=== PATIENT | female | born 1990 | race Caucasian/White ===

== ENCOUNTER 2017-03-26 14:44 | Emergency (ER) | payer SELFPAY ==
[~2017-03-26] VITALS: Ht 175.3 cm; Wt 91.0 kg
[2017-03-26 14:50] VITALS: BP 104/66
== END 2017-03-26 16:55 | disposition left against medical advice (07) ==
LOC: ER 14:44
DX: Z53.21 Procedure and treatment not carried out due to patient leaving prior to being seen by health care provider (principal)

== ENCOUNTER 2017-04-15 20:21 | Emergency (ER) | payer SELFPAY ==
[~2017-04-15] VITALS: Ht 175.3 cm; Wt 94.0 kg
[2017-04-16] MEDS ORDERED: KETOROLAC 60MG/2ML VIAL IM ONE (00:15)
[2017-04-16] MEDS ORDERED: DEXAMETHASONE 10 MG/ML VIAL IM ONE (00:15)
[2017-04-16 01:01] VITALS: BP 135/84
== END 2017-04-16 01:02 | disposition home or self-care (01) ==
LOC: ER 21:25
DX: J02.9 Acute pharyngitis, unspecified (principal)
CPT/HCPCS: 96372; 99284; J1100; J1885